=== PATIENT | male | born 1975 | race Caucasian/White ===

== ENCOUNTER 2017-10-06 18:19 | Emergency (ER) | payer OTHER ==
[~2017-10-06] VITALS: Ht 175.3 cm; Wt 99.8 kg
[2017-10-06 18:30] VITALS: Ht 175.3 cm; Wt 99.8 kg
[2017-10-06 19:05] VITALS: BP 141/95
== END 2017-10-06 19:05 | disposition home or self-care (01) ==
LOC: ED 18:19
DX: J30.9 Allergic rhinitis, unspecified (principal); F17.210 Nicotine dependence, cigarettes, uncomplicated; G89.29 Other chronic pain; M54.9 Dorsalgia, unspecified; Z71.6 Tobacco abuse counseling
CPT/HCPCS: 99406

== ENCOUNTER 2018-02-06 17:29 | Emergency (ER) | payer OTHER ==
[~2018-02-06] VITALS: Ht 175.3 cm; Wt 104.8 kg
[2018-02-06 17:36] VITALS: Ht 175.3 cm; Wt 104.8 kg
[2018-02-06 19:36] VITALS: BP 132/81
== END 2018-02-06 19:36 | disposition home or self-care (01) ==
LOC: ED 17:29
DX: K59.00 Constipation, unspecified (principal); Z88.0 Allergy status to penicillin

== ENCOUNTER 2018-03-13 19:25 | Emergency (ER) | payer OTHER ==
[2018-03-13 19:36] VITALS: Ht 175.3 cm
[2018-03-13 20:52] LABS: BASOPHIL % 0.3 % (0-2); PLATELET COUNT 295 x10^3mcL (130-400); RED CELL DISTRIBUTION WIDTH 13.7 % (11.5-14.5)
[2018-03-13 21:05] LABS: CALCIUM 9.5 mg/dL (8.5-10.1); CARBON DIOXIDE 25.6 mmol/L (21-32); CHLORIDE SERUM 103 mmol/L (98-107); CREATININE SERUM 0.9 mg/dL (0.7-1.3); GFR1 > 60 mL/min; GLUCOSE SERUM 89 mg/dL (74-106); SODIUM SERUM 140 mmol/L (136-145)
[2018-03-13 21:10] LABS: ALBUMIN 4.1 g/dL (3.4-5.0); ALKALINE PHOSPHATASE 98 U/L (46-116); ALT/SGPT 44 U/L (16-63); AST/SGOT 16 U/L (15-37); BILIRUBIN TOTAL 0.36 mg/dL (0.20-1.00); MAGNESIUM 1.9 mg/dL (1.8-2.4)
[2018-03-13 21:44] VITALS: BP 125/78
== END 2018-03-13 21:44 | disposition home or self-care (01) ==
LOC: ED 19:25
PROVIDERS: Emergency Medicine
DX: G89.29 Other chronic pain (principal); M54.5 Low back pain; M79.672 Pain in left foot; M79.671 Pain in right foot; R20.2 Paresthesia of skin; Z88.0 Allergy status to penicillin
CPT/HCPCS: 36415; J1885

== ENCOUNTER 2018-07-26 21:48 | Emergency (ER) | payer OTHER ==
[~2018-07-26] VITALS: Ht 175.3 cm; Wt 99.8 kg
[2018-07-26 22:05] VITALS: BP 163/108; Ht 175.3 cm; Wt 99.8 kg
== END 2018-07-27 00:11 | disposition left against medical advice (07) ==
LOC: ED 21:48
DX: Z53.21 Procedure and treatment not carried out due to patient leaving prior to being seen by health care provider (principal)

== ENCOUNTER 2018-08-04 18:18 | Emergency (ER) | payer OTHER ==
[~2018-08-04] VITALS: Ht 175.3 cm; Wt 99.8 kg
[2018-08-04 20:25] LABS: microscopic required? NO
[2018-08-04 20:35] LABS: BASOPHIL % 0.3 % (0-2); PLATELET COUNT 291 x10^3mcL (130-400); RED CELL DISTRIBUTION WIDTH 14.4 % (11.5-14.5)
[2018-08-04 20:36] LABS: urine erythrocyte NEGATIVE (NEGATIVE)
[2018-08-04 20:48] LABS: AMPHETAMINE QUAL UR NONE DETECTED (See below)
[2018-08-04 21:00] LABS: CALCIUM 8.5 mg/dL (8.5-10.1); CARBON DIOXIDE 31.6 mmol/L (21-32); CHLORIDE SERUM 102 mmol/L (98-107); CREATININE SERUM 0.9 mg/dL (0.7-1.3); GFR1 > 60 mL/min; GLUCOSE SERUM 90 mg/dL (74-106); POTASSIUM SERUM 4.2 mmol/L (3.5-5.1); SODIUM SERUM 138 mmol/L (136-145)
[2018-08-04 21:03] LABS: ALBUMIN 3.9 g/dL (3.4-5.0); ALKALINE PHOSPHATASE 91 U/L (46-116); ALT/SGPT 45 U/L (16-63); AST/SGOT 17 U/L (15-37); BILIRUBIN TOTAL 0.1 mg/dL (0.20-1.00)
[2018-08-04 21:08] LABS: TOTAL PROTEIN, SERUM 8.6 g/dL (6.4-8.2)
[2018-08-04 22:11] VITALS: BP 122/82
== END 2018-08-04 22:11 | disposition home or self-care (01) ==
LOC: ED 18:18
PROVIDERS: Emergency Medicine
DX: K60.2 Anal fissure, unspecified (principal); F41.0 Panic disorder [episodic paroxysmal anxiety]; F41.9 Anxiety disorder, unspecified; I10 Essential (primary) hypertension; G89.29 Other chronic pain
CPT/HCPCS: 36415; G0480

== ENCOUNTER 2018-08-21 08:50 | Emergency (ER) | payer OTHER ==
[~2018-08-21] VITALS: Ht 175.3 cm; Wt 99.8 kg
[2018-08-21 08:55] VITALS: Ht 175.3 cm; Wt 99.8 kg
[2018-08-21 10:14] LABS: PLATELET COUNT 256 x10^3mcL (130-400)
[2018-08-21 10:18] LABS: BASOPHIL % 0 % (0-2); CALCIUM 8.2 mg/dL (8.5-10.1); CARBON DIOXIDE 28.3 mmol/L (21-32); CHLORIDE SERUM 105 mmol/L (98-107); CREATININE SERUM 0.8 mg/dL (0.7-1.3); GFR1 > 60 mL/min; GLUCOSE SERUM 111 mg/dL (74-106); POTASSIUM SERUM 4.1 mmol/L (3.5-5.1); RED CELL DISTRIBUTION WIDTH 14.6 % (11.5-14.5); SODIUM SERUM 141 mmol/L (136-145)
[2018-08-21 10:27] LABS: ALKALINE PHOSPHATASE 98 U/L (46-116); ALT/SGPT 38 U/L (16-63); AST/SGOT 16 U/L (15-37); BILIRUBIN TOTAL 0.22 mg/dL (0.20-1.00); TOTAL PROTEIN, SERUM 7.6 g/dL (6.4-8.2)
[2018-08-21 10:38] LABS: ALBUMIN 3.3 g/dL (3.4-5.0)
[2018-08-21 10:41] LABS: microscopic required? NO
[2018-08-21 11:12] LABS: UA SPECIFIC GRAVITY 1.015 (1.005-1.035); urine erythrocyte NEGATIVE (NEGATIVE)
[2018-08-21 11:44] VITALS: BP 118/75
== END 2018-08-21 11:51 | disposition home or self-care (01) ==
LOC: ED 08:50
PROVIDERS: Emergency Medicine
DX: T68.XXXA Hypothermia, initial encounter (principal); J32.9 Chronic sinusitis, unspecified; G89.29 Other chronic pain; M54.9 Dorsalgia, unspecified; Z88.0 Allergy status to penicillin
CPT/HCPCS: 36415; J7030

== ENCOUNTER 2019-02-24 05:05 | Emergency (ER) | payer OTHER ==
[~2019-02-24] VITALS: Ht 172.7 cm; Wt 102.1 kg
[2019-02-24 05:08] VITALS: Ht 172.7 cm; Wt 102.1 kg
[2019-02-24 06:14] LABS: CARBON DIOXIDE 29.5 mmol/L (21-32); CHLORIDE SERUM 105 mmol/L (98-107); CREATININE SERUM 0.8 mg/dL (0.7-1.3); GFR1 > 60 mL/min; GLUCOSE SERUM 111 mg/dL (74-106); SODIUM SERUM 143 mmol/L (136-145)
[2019-02-24 06:19] LABS: ALBUMIN 3.5 g/dL (3.4-5.0); ALKALINE PHOSPHATASE 95 U/L (46-116); ALT/SGPT 35 U/L (16-63); AST/SGOT 12 U/L (15-37); TOTAL PROTEIN, SERUM 7.3 g/dL (6.4-8.2)
[2019-02-24 06:46] LABS: BASOPHIL % 0.5 % (0-2); PLATELET COUNT 289 x10^3mcL (130-400)
[2019-02-24 06:48] LABS: AMPHETAMINE QUAL UR NONE DETECTED (See below)
[2019-02-24 06:57] LABS: RED CELL DISTRIBUTION WIDTH 14.6 % (11.5-14.5)
[2019-02-24 08:03] LABS: FREE T4 0.88 ng/dL (0.76-1.46); FREE THYROXINE INDEX 2.5 ug/dL (1.4-4.5); T4(THYROXINE) 7.7 ug/dL (4.7-13.3)
[2019-02-24 08:26] LABS: T3 TOTAL 1.08 ng/mL
[2019-02-24 10:17] VITALS: BP 110/74
== END 2019-02-24 10:17 | disposition home or self-care (01) ==
LOC: ED 05:05
PROVIDERS: Emergency Medicine
DX: R51 Headache (principal); R42 Dizziness and giddiness; R53.1 Weakness; G89.29 Other chronic pain; R53.83 Other fatigue; R20.2 Paresthesia of skin; Z88.0 Allergy status to penicillin
CPT/HCPCS: 84439; G0480; J7030